=== PATIENT | female | born 1945 | race Caucasian/White ===

== ENCOUNTER 2023-11-12 16:42 | Emergency (ER) | payer OTHER ==
[2023-11-13] MEDS ORDERED: ACETAMINOPHEN325 M2 PEG (20:38)
[2023-11-13] MEDS ORDERED: AMIODARONE HCL100 M1 PEG (20:39)
[2023-11-13] MEDS ORDERED: MELATONIN3 MG PEG (20:41)
[2023-11-13] MEDS ORDERED: 'KLONOPIN0.5 MG PEG (20:41)
[2023-11-13] MEDS ORDERED: LASIX20 MG PO (20:43)
[2023-11-13] MEDS ORDERED: LOPRESSOR25 MG PEG (20:50)
[2023-11-14] MEDS ORDERED: DOXYCYCLINE HY100 M3 PEG (06:28)
[2023-11-14] MEDS ORDERED: FOSFOMYCIN TROME3 GM PEG (06:30)
[2023-11-14] MEDS ORDERED: NYST SUSP PO (06:33)
[2023-11-14] MEDS ORDERED: OXYCODONE5 M1 PEG (06:34)
[2023-11-14] MEDS ORDERED: ZOLOFT100 MG PEG (06:35)
[2023-11-14] MEDS ORDERED: XANAX0.5 MG PEG (06:36)
[2023-11-14] MEDS ORDERED: Ipratropium Brom3 ML INH (06:37)
[2023-11-14] MEDS ORDERED: FLORASTOR250 MG PEG (17:33)
[2023-11-14] MEDS ORDERED: OMEPRAZOLE40 MG PEG (17:37)
== END 2023-11-12 19:24 ==
LOC: ED 16:42
DX: S00.03XA Contusion of scalp, initial encounter (principal); S00.01XA Abrasion of scalp, initial encounter; W01.198A Fall on same level from slipping, tripping and stumbling with subsequent striking against other object, initial encounter; Y93.01 Activity, walking, marching and hiking; Y92.129 Unspecified place in nursing home as the place of occurrence of the external cause; Y99.8 Other external cause status

== ENCOUNTER 2023-11-30 10:04 | Emergency (ER) | payer OTHER ==
[~2023-11-30] VITALS: Wt 58.5 kg
[~2023-11-30 10:04] MED LIST: 'KLONOPIN0.5 MG PEG; ACETAMINOPHEN325 M2 PEG; AMIODARONE HCL100 M1 PEG; ASPIRIN ADULT L81 M2 PO; ATORVASTATIN CA40 M1 PEG; DOXYCYCLINE HY100 M3 PEG; FLORASTOR250 MG PEG; FOSFOMYCIN TROME3 GM PEG; Ipratropium Brom3 ML INH; LASIX20 MG PO; LOPRESSOR25 MG PEG; MELATONIN3 MG PEG; NYST SUSP PO; OMEPRAZOLE40 MG PEG; OXYCODONE5 M1 PEG; PIPERACIL-TAZO4.5 GM IV; VANCOCIN125 M1 PO; XANAX0.5 MG PEG; ZOLOFT100 MG PEG; ZYVOX600 MG PO
[2023-11-30] MEDS ORDERED: BISACODYL10 MG R (10:27)
[2023-11-30] MEDS ORDERED: 'KLONOPIN0.5 MG PO (10:28)
[2023-11-30] MEDS ORDERED: DOXYCYCLINE150 MG PO (10:29)
[2023-11-30] MEDS ORDERED: FLEET ENEMA 13133 ML R (10:31)
[2023-11-30] MEDS ORDERED: MILK OF MA2400 MG/11 PO (10:33)
[2023-11-30] MEDS ORDERED: OXYCODONE5 M1 PO (10:34)
[2023-11-30] MEDS ORDERED: POTASSIUM CHLO10 ME4 PO (10:35)
[2023-11-30 12:01] LABS: BASO % 0.3 % (0.0-1.0); EOS # 0.4 10*3/uL (0.0-0.4); EOS % 4.6 % (1.0-4.0); HEMATOCRIT 24.1 % (37.0-47.0); LYMPH # 1.5 10*3/uL (1.3-4.4); LYMPH % 15.4 % (27.0-41.0); MEAN CORPUSCULAR HGB 28.3 pg (27.0-31.0); MEAN CORPUSCULAR HGB CONC 29.5 g/dl (33.0-37.0); MEAN PLATELET VOLUME 10.3 fl (9.6-12.3); MONO # 1.1 10*3/uL (0.1-1.0); MONO % 11.2 % (3.0-9.0); NEUT # 6.5 10*3/uL (2.3-7.9); NEUT % 68.1 % (47.0-73.0); PLATELET COUNT AUTOMATED 114 10*3/uL (130-400); RED BLOOD COUNT 2.51 10*6/uL (4.10-5.10); WHITE BLOOD COUNT 9.6 10*3/uL (4.8-10.8)
[2023-11-30 12:12] LABS: ACT PARTIAL THROMBO TIME 23.6 SECONDS (20.0-32.1)
[2023-11-30 12:23] LABS: ALKALINE PHOSPHATASE 167 U/L (46-116); BUN 33 mg/dl (9-23); CHLORIDE 97 mmol/L (98-107); POTASSIUM 3.2 mmol/L (3.4-5.1); SGPT/ALT 25 U/L (5-49); TOTAL PROTEIN 7.2 gm/dL (6.0-8.0)
[2023-11-30] MEDS ORDERED: Midazolam Hydrochloride 2 MG/2 ML VIAL IV ONE (18:00)
== END 2023-11-30 18:32 | disposition short-term general hospital (02) ==
LOC: ED 10:04
PROVIDERS: Internal Medicine
DX: J95.00 Unspecified tracheostomy complication (principal); D64.9 Anemia, unspecified; Z88.2 Allergy status to sulfonamides; Z79.2 Long term (current) use of antibiotics; Z79.82 Long term (current) use of aspirin; Z79.899 Other long term (current) drug therapy; Z95.0 Presence of cardiac pacemaker; Z98.890 Other specified postprocedural states; Z87.891 Personal history of nicotine dependence; Y83.8 Other surgical procedures as the cause of abnormal reaction of the patient, or of later complication, without mention of misadventure at the time of the procedure